=== PATIENT | male | born 1995 | race Caucasian/White ===

== ENCOUNTER 2018-03-05 17:15 | Emergency (ER) | payer OTHER ==
[2018-03-05 17:20] VITALS: BP 140/80
--- NOTE | 2018-03-05 18:10 | ER Document Report ---
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 He cleaned it with soap and water and used superglue to close the wound at 9:30 PM. He did shave the hair at the same time. - CONSTITUTIONAL Constitutional: DENIES: Fever, Chills - EENT EENT: DENIES: Sore Throat, Ear Pain, Eye problems - NEURO Neurology: DENIES: Headache, Weakness, Vision blurred, Dizzinesss / Vertigo - CARDIOVASCULAR Cardiovascular: DENIES: Chest pain - RESPIRATORY Respiratory: DENIES: Trouble Breathing, Coughing - GASTROINTESTINAL Gastrointestinal: DENIES: Abdominal Pain, Black / Bloody Stools - URINARY Urinary: DENIES: Dysuria, Urgency, Frequency - MUSCULOSKELETAL Musculoskeletal: REPORTS: Extremity pain Past Medical History - General Information source: Patient - Social History Smoking Status: Never Smoker Chew tobacco use (# tins/day): Yes Frequency of alcohol use: None Drug Abuse: None 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 IN LAST 30 DAYS: No - MUSCULOSKELETAL/EXTREMETIES Musculoskeletal/Extremeties: LARISA FROM, Tender - Anterior knee, patellar tendon is intact, there is no tenderness or erythema at the suprapatellar lateral 1 cm laceration that the patient closed with superglue - NEURO Level of Consciousness: Alert Motor/Sensory: No Motor Deficit, No Sensory Deficit Course - Re-evaluation Re-evalutation: 03/05/18 X-ray negative per radiologist. I had Dr. Shore look at the leg he does not advise opening the wound because the patient closed it was superglue. There are no signs of infection. - Vital Signs Vital signs: Temp Pulse Resp BP Pulse Ox 98.6 F 68 16 140/80 H 100 03/05/18 17:19 03/05/18 17:19 03/05/18 17:19 03/05/18 17:19 03/05/18 17:19 Discharge - Discharge Clinical Impression: Left knee contusion, Left knee laceration self glued Condition: Good Disposition: HOME, SELF-CARE Instructions: Acetaminophen, Contusion ([facility]), Use of Crutches ([facility]), Ibuprofen (General) ([facility]), Non-Sutured Laceration ([facility]) Additional Instructions: See your sick call on Wednesday for recheck Elevate tomorrow Warm compress Crutches Tylenol Motrin To the emergency room any worsening of the symptoms, red, hot, increased swelling, warm Prescriptions: Ibuprofen [Motrin 600 mg Tablet] 600 mg PO Q8HP PRN #30 tablet PRN Reason: Referrals: LOCALMD,NO [Primary Care Provider] - Follow up as needed
[2018-03-05] MEDS ORDERED: ACETAMINOPHEN 325 MG TABLET PO ONE (18:35)
[2018-03-05] MEDS ORDERED: IBUPROFEN 400 MG TABLET PO ONE (18:35)
--- NOTE | 2018-03-05 19:16 | RADIOLOGY REPORT (SQ) ---
EXAM DESCRIPTION: KNEE LEFT 4 VIEW COMPLETED DATE/TIME: 03/05/2018 6:43 pm REASON FOR STUDY: injury fall injury pain COMPARISON: None. NUMBER OF VIEWS: Four views. TECHNIQUE: AP, lateral, and both oblique radiographic images acquired of the left knee. LIMITATIONS: None. FINDINGS: MINERALIZATION: Normal. BONES: No acute fracture or dislocation. No worrisome bone lesions. JOINT: Large suprapatellar knee joint effusion. This could indicate internal derangement or cruciate ligament injury SOFT TISSUES: No soft tissue swelling. No radio-opaque foreign body. OTHER: No other significant finding. IMPRESSION: Large suprapatellar knee joint effusion, worrisome for internal derangement TECHNICAL DOCUMENTATION: JOB ID: [id number] [employer]- All Rights Reserved Reading location - IP/workstation name: [email or web address]
== END 2018-03-05 18:53 | disposition home or self-care (01) ==
LOC: ER 17:15
DX: S81.012A Laceration without foreign body, left knee, initial encounter (principal); W22.8XXA Striking against or struck by other objects, initial encounter; Y93.89 Activity, other specified
CPT/HCPCS: 99283; 73564; J3490